=== PATIENT | male | born 1960 | race Caucasian/White ===

== ENCOUNTER 2016-07-14 14:43 | Inpatient (IN) | payer OTHER ==
[~2016-07-14] VITALS: Ht 175.3 cm; Wt 78.4 kg
[2016-07-14 17:10] VITALS: BP 166/96; PULSE 56; TEMP 36.6; O2SAT 95
--- NOTE | 2016-07-14 17:38 | History and Physical ---
History & Physical Date of Service Jul 14, 2016. History & Physical H & P Dictated #[id number] Family Contact is sister Pat [phone]
[2016-07-14 17:42] VITALS: BP 166/96; PULSE 56; TEMP 36.6; Ht 175.3 cm; Wt 78.4 kg
[2016-07-14] MEDS ORDERED: ACETAMINOPHEN 325 MG TAB PO PRN (17:45)
[2016-07-14] MEDS ORDERED: ONDANSETRON INJ 2 MG/ML 2 ML VIAL IV PRN (17:45)
[2016-07-14] MEDS ORDERED: ALBUTEROL 0.083% NEBU SOLN 3 ML VIAL INH PRN (17:45)
--- NOTE | 2016-07-14 17:52 | DIAGNOSTIC IMAGING REPORT ---
CHEST ONE VIEW PORTABLE CLINICAL HISTORY: pneumothorax COMPARISON STUDY: No previous studies for comparison. FINDINGS: The heart is normal in size. There is a right-sided pneumothorax with maximal pleural separation of 34 mm. There is no focal pulmonary consolidation.[ There is no significant pleural fluid. IMPRESSION: Moderate right-sided pneumothorax. Electronically signed by: Jarad Gómez M.D. 07/14/2016 5:50 PM Dictated Date/Time: 07/14/2016 5:48 PM
--- NOTE | 2016-07-14 18:10 | DIAGNOSTIC IMAGING REPORT ---
CT OF THE CHEST WITHOUT IV CONTRAST CLINICAL HISTORY: spontaneous pneumothorax COMPARISON STUDY: Chest x-ray dated 07/14/2016 CT DOSE: 410.55 mGy.cm TECHNIQUE: CT of the thorax was performed from the thoracic inlet to the lung bases. Images are reviewed in the axial, sagittal, and coronal planes. IV contrast was not administered for this examination. FINDINGS: Thyroid: Imaged portions of the thyroid gland are normal in appearance. Thoracic aorta: The thoracic aorta is normal in course and caliber, noting standard 3 vessel arch anatomy. Heart: The heart is normal in size and configuration, without pericardial effusion. Lungs and pleural spaces: There is a moderate right-sided pneumothorax with a pleural separation of 9 cm at the right lung base. There are dependent atelectatic changes. There is nodularity of the right middle lobe visceral surface. There are prominent apical blebs including a 29 mm right apical bleb. There is underlying emphysema. There are air bubbles present within the right chest wall. Mediastinum: There is no mediastinal lymphadenopathy. Gosia: There is no evidence of pathologic hilar adenopathy given the limitations of a noncontrast study Axilla: Clear. Upper abdomen: Partially visualized upper abdominal viscera is within normal limits. Skeletal structures: There is right-sided subcutaneous emphysema. IMPRESSION: 1. Moderate right-sided pneumothorax 2. Right-sided subcutaneous emphysema 3. Emphysema with biapical blebs 4. Dependent right lower lobe atelectasis 5. Nodular thickening of the visceral surface of the right middle lobe Electronically signed by: Jarad Gómez M.D. 07/14/2016 6:08 PM Dictated Date/Time: 07/14/2016 6:03 PM
[2016-07-14] MEDS ORDERED: PATIENT'S ALLERGY INFO NEEDS ENTERED SCH (18:30)
[2016-07-14] MEDS: MoRPHine SULFATE 2 MG/ML CARP IV PRN ×2 (19:18→23:26)
[2016-07-14] MEDS ORDERED: BUPR1SUB23 PO ×2 (19:21→19:40)
[2016-07-14 19:29] LABS: HEMATOCRIT 46.2 % (42-52); MEAN CELL VOLUME 92.6 fL (80-100); MEAN CORPUSCULAR HEMOGLOBIN 32.7 pg (25-34); MEAN CORPUSCULAR HGB CONC 35.3 g/dl (32-36); MEAN PLATELET VOLUME 10.1 fL (7.4-10.4); PLATELET COUNT 278 K/uL (130-400); RED BLOOD COUNT 4.99 M/uL (4.7-6.1); WHITE BLOOD COUNT 8.95 K/uL (4.8-10.8)
[2016-07-14 19:39] LABS: INR 1.1 (0.9-1.1); PARTIAL THROMBOPLASTIN RATIO 1.1; PROTHROMBIN TIME (PATIENT) 11.4 SECONDS (9.0-12.0)
[2016-07-14] MEDS ORDERED: AMOX500C3 PO (19:41)
[2016-07-14] MEDS ORDERED: AMLO-110 PO (19:43)
[2016-07-14] MEDS ORDERED: GABA-113 PO (19:43)
[2016-07-14] MEDS ORDERED: RANI150C4 PO (19:45)
[2016-07-14] MEDS ORDERED: ASPI81TA28 PO (19:46)
[2016-07-14 19:51] LABS: CREATININE 0.99 mg/dl (0.60-1.40)
[2016-07-14] MEDS ORDERED: ENOXAPARIN 40 MG/0.4 ML SYR SQ SCH (20:00)
[2016-07-14] MEDS ORDERED: ATV/2 PO (20:06)
[2016-07-14] MEDS ORDERED: PROP10TA7 PO (20:08)
[2016-07-14] MEDS ORDERED: ALPR0.25 PO (20:11)
[2016-07-14 20:36] VITALS: BP 137/87; PULSE 51; PULSE 65; O2SAT 95
[2016-07-14] MEDS: METOPROLOL SUCC 50MG EXT REL TAB PO SCH (20:42)
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
[2016-07-14 22:50] VITALS: BP 134/83; PULSE 60; TEMP 36.5; O2SAT 95
[2016-07-15] VITALS (9 sets, daily range): BP systolic 121–147; BP diastolic 73–87; PULSE 49–70; TEMP 36.6–36.9; O2SAT 91–94
[2016-07-15] MEDS: MoRPHine SULFATE 2 MG/ML CARP IV PRN ×5 (03:59→23:33)
[2016-07-15] MEDS ORDERED: CEFAZOLIN IV 2,000 MG/60 ML D5W IV SCH (06:00)
--- NOTE | 2016-07-15 07:19 | DIAGNOSTIC IMAGING REPORT ---
CHEST ONE VIEW PORTABLE CLINICAL HISTORY: pneumothorax dyspnea COMPARISON STUDY: 07/14/2016 FINDINGS: Right-sided pneumothorax is slightly diminished in volume. Pleural separation is diminished from 3.4 cm to 3.0 cm at the upper lung level. It is diminished from 5.2 to 4.2 cm in the right lung base region. Like atelectasis both lung bases. No evidence for cardiac enlargement. IMPRESSION: Right-sided pneumothorax slightly diminished in volume compared to the prior study. Electronically signed by: Brayan Saab M.D. 07/15/2016 7:17 AM Dictated Date/Time: 07/15/2016 7:15 AM
[2016-07-15] MEDS: OXYCODONE HCL IR 5 MG TAB (IMMEDIATE RELEASE) PO PRN ×2 (08:00→20:50)
[2016-07-15] MEDS: ASPIRIN 81 MG ECTAB PO SCH (08:01)
[2016-07-15] MEDS: METOPROLOL SUCC 50MG EXT REL TAB PO SCH ×2 (08:01→21:15)
[2016-07-15] MEDS: AMLODIPINE BESYLATE 5 MG TAB PO SCH (08:01)
--- NOTE | 2016-07-15 09:01 | SURGERY PROGRESS NOTE ---
DATE: 07/15/2016 DATE: 07/15/2016. Mr. Ngo was transferred to my service from [facility] yesterday evening. For specifics of his history and physical please see Suhail Nguyen's note. I had a long talk with Mr. Ngo this morning. He has apical blebs and has recurrent right spontaneous pneumothorax. I had a long discussion with him including using drawings to explain apical blebs. We are going to do a right thoracoscopic apical bleb resection this afternoon. I had a long talk about risks and benefits including bleeding, infection, blood clots, pneumonia, and especially air leaks. He understands. We are going to proceed later this afternoon and hopefully we will get him out of the hospital in the next 24-48 hours.
[2016-07-15] MEDS ORDERED: DEXAMETHASONE SOD INJ 4 MG/ML VIAL ONE (15:44)
[2016-07-15] MEDS ORDERED: LIDOCAINE HCL 2% 2 ML VIAL (20MG/ML) ONE (15:44)
[2016-07-15] MEDS ORDERED: PROPOFOL IV EMULSION 10 MG/ML 20 ML VIAL IV ONE (15:44)
[2016-07-15] MEDS ORDERED: NEOSTIGMINE METHYLSULFATE 1 MG/ML 10ML VIAL ONE (15:44)
[2016-07-15] MEDS ORDERED: FENTANYL CITRATE INJ 50 MCG/1 ML 2 ML VIAL ONE ×2 (15:44→16:19)
[2016-07-15] MEDS ORDERED: ROCURONIUM BROMIDE 10 MG/ML 5 ML VIAL ONE (15:44)
[2016-07-15] MEDS ORDERED: PHENYLEPHRINE 100MCG/ML 5ML SYR ONE (15:44)
[2016-07-15] MEDS ORDERED: ONDANSETRON INJ 2 MG/ML 2 ML VIAL ONE (15:44)
[2016-07-15] MEDS ORDERED: GLYCOPYRROLATE INJ 0.2 MG/ML VIAL ONE (15:44)
[2016-07-15] MEDS ORDERED: MIDAZOLAM HCL 1 MG/ML 2ML VIAL ONE (15:44)
[2016-07-15] MEDS ORDERED: SODIUM CHLORIDE 0.9% PF 50 ML VIAL ONE (15:50)
[2016-07-15] MEDS ORDERED: BUPIVACAINE LIPOSOME 1/3% 266 MG/20 ML VIAL INFIL ONE (15:50)
[2016-07-15] MEDS ORDERED: ATROPINE SULFATE 0.1 MG/ML 5ML SYR IV PRN (16:45)
[2016-07-15] MEDS ORDERED: HYDROmorphone INJ 0.5 MG/0.5 ML SYR IV PRN (16:45)
[2016-07-15] MEDS ORDERED: LABETALOL HCL IV 5 MG/ML 20ML IV PRN (16:45)
[2016-07-15] MEDS ORDERED: ONDANSETRON INJ 2 MG/ML 2 ML VIAL IV PRN ×2 (16:45→17:00)
[2016-07-15] MEDS ORDERED: KETOROLAC TROMETHAMINE 30 MG/ML VIAL IV. PRN (16:45)
[2016-07-15] MEDS ORDERED: HYDROmorphone INJ 1 MG/ML SYR ONE (17:14)
[2016-07-15] MEDS ORDERED: KETOROLAC TROMETHAMINE 30 MG/ML VIAL ONE (17:14)
[2016-07-15] MEDS: KETOROLAC TROMETHAMINE 15 MG/ML VIAL IV. SCH (18:00)
--- NOTE | 2016-07-15 18:07 | DIAGNOSTIC IMAGING REPORT ---
SINGLE VIEW CHEST CLINICAL HISTORY: Postoperative examination. FINDINGS: An AP, portable, upright chest radiograph is compared to study performed earlier the same day 07/15/2016 and correlated with chest CT dated 07/15/2015. The examination is degraded by portable technique and patient rotation. A right-sided chest tube has been placed. The tip terminates at the right apex. There is a small residual right apical pneumothorax, with approximately 2.5 cm right apical pleural separation. This has significantly decreased in size from the preoperative examination. The trachea is midline. The heart is top normal for projection. The pulmonary vascular is noncongested. Emphysema and chronic interstitial thickening are similar to previous. A trace right pleural effusion is suspected and there is bibasilar atelectasis. The bony thorax is grossly intact. Subcutaneous gas is noted along the right chest wall. IMPRESSION: 1. A right-sided chest tube has been placed. There is a small residual right apical pneumothorax. This has significantly decreased in size from the preoperative examination. 2. Emphysema. 3. Bibasilar atelectasis and trace right pleural effusion. Electronically signed by: Willie Terry M.D. 07/15/2016 6:05 PM Dictated Date/Time: 07/15/2016 6:02 PM
[2016-07-15] MEDS: D5W AND 1/2NSS 1,000 ML IV SCH (18:21)
[2016-07-15] MEDS: ACETAMINOPHEN IV 1,000 MG in EMPTY BAG 0 ML IV SCH (19:12)
--- NOTE | 2016-07-15 19:15 | OPERATIVE REPORT ---
DATE OF OPERATION: 07/15/2016 PREOPERATIVE DIAGNOSES: 1. Recurrent spontaneous right pneumothorax. 2. Bilateral apical bullae. POSTOPERATIVE DIAGNOSES: Same. PROCEDURE: Right thoracoscopy with apical bleb resection. SURGEON: Yoni Haywood MD HYDRAULIC LIFT DRIVER: DINA Stevens ANESTHESIA: General anesthesia endotracheal intubation with double lumen tube. SPECIFICS OF PROCEDURE: Very nice 55-year-old male who suffers spontaneous pneumothorax, had a chest tube inserted and when the leak stopped it was removed. He went home, only to come back within several days to [facility] with a recurrent pneumothorax. As he was stable, a call was made and I transferred him to my service last night. He did indeed have bilateral atypical bullae. I had a long talk with him this morning and we elected to proceed with an apical bleb resection. On the afternoon of 07/15/2016, patient underwent an uncomplicated apical bleb resection. We used two 12 mm ports and a 5 mm port. He tolerated it quite well. We also did an Exparel block. Blood loss was negligible and he had no air leak at the conclusion of the case. DESCRIPTION OF PROCEDURE: The patient was brought to the operating room and laid in the supine position. General anesthesia induced and endotracheal intubation was performed with a double lumen tube. No Banks and no a-line were used. The patient was turned to left lateral decubitus position, his right chest was prepped and draped in usual sterile fashion. After appropriate timeout had been called. A 5 mm port was made posteriorly and CO2 was insufflated. I then put a 5 mm scope, and it could be seen that the only adhesions noted were at the apex. I then placed a 12 mm port just anterior to the 2 interspaces below the tip of the scapula and another 12 mL port more medial just lateral to the mediastinum. These were done under thoracoscopic guidance. A 5 mm grasper was then placed through the posterior port, and a 10 mm 30-degree scope was placed in the middle port. I then used an electrocautery through the medial port and divided these adhesions. The bullae were localized to the apex. Endo-MEDHAT stapler was placed in the anterior thoracoscopy port while the posterior 5 [address] port held in place. We then stapled across these quite nicely. About 266 mg of Exparel mixed with 60 mL of normal saline. This was then injected from the 2nd to the 11th rib under thoracoscopic guidance for intercostal block. The patient was then placed in Trendelenburg and about a liter of warm saline were placed and then the lung was inflated. We saw no leak whatsoever. Chest tube was placed in the anterior thoracoscopy port. This 24 mm chest tube was held in place with heavy silk suture. Lung was then inflated and we checked for leak and there was no air leak. A 0 Polysorb was used to close the muscle layers and the 2 larger ports, and 4-0 Monocryl was used in a running subcuticular fashion to approximate the wound edges, this was done in a subcuticular fashion. Heavy silk was used to suture the chest tube in place. He tolerated it well and was extubated in the room. I attest to the content of the Intraoperative Record and any orders documented therein. Any exceptions are noted below. CARLA
[2016-07-15] MEDS: CEFAZOLIN IV 2,000 MG in DEXTROSE 5% 50ML 100 ML IV SCH (20:51)
--- NOTE | 2016-07-15 20:54 | Anesthesiology Progress Note ---
Anesthesia Post Op Note Date & Time Jul 15, 2016 at 20:54 Vital Signs Vital Signs Past 12 Hours Date Time Temp Pulse Resp B/P Pulse Ox O2 Delivery O2 Flow Rate FiO2 07/15/16 20:29 36.7 60 17 123/73 93 Nasal Cannula 2.5 07/15/16 19:24 36.6 55 18 125/76 92 Nasal Cannula 3.0 07/15/16 19:00 93 Nasal Cannula 3.0 07/15/16 18:38 93 Nasal Cannula 3.0 07/15/16 18:25 36.7 51 18 127/82 94 Nasal Cannula 2.0 07/15/16 18:00 36.7 49 18 121/78 92 Nasal Cannula 3.0 07/15/16 17:55 36.9 55 18 114/70 96 Nasal Cannula 3 07/15/16 17:40 55 20 119/74 95 Nasal Cannula 3 07/15/16 17:30 50 14 128/79 98 Nasal Cannula 3 07/15/16 17:20 52 16 132/80 98 Mask 10 07/15/16 17:10 51 16 136/80 98 Mask 10 07/15/16 17:02 36 55 16 137/84 98 Mask 10 Notes Mental Status: alert / awake / arousable, participated in evaluation Pt Amnestic to Procedure: Yes Nausea / Vomiting: adequately controlled Pain: adequately controlled Airway Patency, RR, SpO2: stable & adequate BP & HR: stable & adequate Hydration State: stable & adequate Anesthetic Complications: no major complications apparent
[2016-07-15] MEDS ORDERED: GABAPENTIN 100 MG CAP PO SCH (21:00)
[2016-07-15] MEDS: DOCUSATE SODIUM 100 MG CAP PO SCH (21:13)
[2016-07-15] MEDS: GABAPENTIN 300 MG CAP PO SCH (21:46)
[2016-07-15] MEDS: METOCLOPRAMIDE HCL INJ 5 MG/ML 2 ML VIAL IV. SCH (22:02)
[2016-07-16] VITALS (12 sets, daily range): BP systolic 106–145; BP diastolic 64–86; PULSE 52–66; TEMP 36.6–36.9; O2SAT 90–94
[2016-07-16] MEDS: KETOROLAC TROMETHAMINE 15 MG/ML VIAL IV. SCH ×3 (02:05→17:16)
[2016-07-16] MEDS: ACETAMINOPHEN IV 1,000 MG in EMPTY BAG 0 ML IV SCH ×2 (04:25→12:11)
[2016-07-16] MEDS: D5W AND 1/2NSS 1,000 ML IV SCH ×2 (04:25→13:37)
[2016-07-16] MEDS: CEFAZOLIN IV 2,000 MG in DEXTROSE 5% 50ML 100 ML IV SCH (05:29)
[2016-07-16] MEDS: METOCLOPRAMIDE HCL INJ 5 MG/ML 2 ML VIAL IV. SCH ×2 (05:29→13:38)
[2016-07-16] MEDS: OXYCODONE HCL IR 5 MG TAB (IMMEDIATE RELEASE) PO PRN ×3 (07:09→20:17)
[2016-07-16] MEDS: MoRPHine SULFATE 2 MG/ML CARP IV PRN ×4 (07:42→20:59)
[2016-07-16] MEDS: ASPIRIN 81 MG ECTAB PO SCH (08:54)
[2016-07-16] MEDS: DOCUSATE SODIUM 100 MG CAP PO SCH ×2 (08:54→21:03)
[2016-07-16] MEDS: METOPROLOL SUCC 50MG EXT REL TAB PO SCH ×2 (08:58→21:04)
[2016-07-16] MEDS: GABAPENTIN 300 MG CAP PO SCH ×3 (08:59→21:00)
[2016-07-16] MEDS: AMLODIPINE BESYLATE 5 MG TAB PO SCH (08:59)
[2016-07-16] MEDS: ENOXAPARIN 40 MG/0.4 ML SYR SQ SCH (09:02)
--- NOTE | 2016-07-16 10:58 | Anesthesiology Progress Note ---
Anesthesia Post Op Note Date & Time Jul 16, 2016 at 10:57 Vital Signs Pain Intensity: 8.0 Vital Signs Past 12 Hours Date Time Temp Pulse Resp B/P Pulse Ox O2 Delivery O2 Flow Rate FiO2 07/16/16 08:56 57 119/81 07/16/16 07:30 Room Air 07/16/16 07:05 36.7 57 18 123/80 90 Room Air 07/16/16 06:00 92 07/16/16 05:47 92 Room Air 07/16/16 05:07 36.6 61 18 111/69 91 Nasal Cannula 3.0 07/16/16 03:00 36.7 52 18 106/64 92 Nasal Cannula 3.0 07/16/16 01:42 36.6 55 18 114/73 93 Nasal Cannula 3.0 07/15/16 23:30 Nasal Cannula 3.0 07/15/16 22:58 36.9 56 16 122/73 93 Nasal Cannula 3.0 Notes Mental Status: alert / awake / arousable, participated in evaluation Pt Amnestic to Procedure: Yes Nausea / Vomiting: adequately controlled Pain: adequately controlled Airway Patency, RR, SpO2: stable & adequate BP & HR: stable & adequate Hydration State: stable & adequate Anesthetic Complications: no major complications apparent
[2016-07-16] MEDS ORDERED: ACETAMINOPHEN 325 MG TAB PO PRN (14:00)
--- NOTE | 2016-07-16 15:01 | SURGERY PROGRESS NOTE ---
DATE: 07/15/2016 Mr. Ngo was seen today 1 day status post thoracoscopic wedge resection of a right upper lobe bulla with spontaneous pneumothorax. His x-ray looked good yesterday postop. He has a small air leak which is intermittent. He drained very little from his chest tube. He is on room air. He is having issues with pain despite our Exparel block and narcotics as well as parenteral acetaminophen and Toradol. We are going to leave his chest tube in for at least 1 more day and hopefully his air leak will resolve by tomorrow. It is very small. He really did not have one postop. I reviewed all the connections and they appear to be intact.
[2016-07-17] VITALS (8 sets, daily range): BP systolic 127–161; BP diastolic 81–86; PULSE 52–68; TEMP 36.5–36.8; O2SAT 91–94
[2016-07-17] MEDS: MoRPHine SULFATE 2 MG/ML CARP IV PRN ×5 (00:06→23:27)
[2016-07-17] MEDS: KETOROLAC TROMETHAMINE 15 MG/ML VIAL IV. SCH ×2 (02:52→10:16)
[2016-07-17] MEDS: OXYCODONE HCL IR 5 MG TAB (IMMEDIATE RELEASE) PO PRN ×3 (08:03→20:08)
--- NOTE | 2016-07-17 08:09 | DIAGNOSTIC IMAGING REPORT ---
SINGLE VIEW CHEST CLINICAL HISTORY: Pneumothorax. Postoperative examination. FINDINGS: An AP, portable, upright chest radiograph is compared to studies dated 07/15/2016 and correlated with chest CT dated 07/15/2015. The examination is degraded by portable technique and patient rotation. A right-sided chest tube is unchanged in position. There is increasing right apical pneumothorax as compared to yesterday. There is approximately 4 cm of right apical pleural separation on today's examination. The trachea is midline. The heart is top normal for projection. The pulmonary vascular is noncongested. Emphysema and chronic interstitial thickening are similar to previous. Nodular scarring is noted the collapsed right apex. There is developing linear atelectasis in the left lower lung. A trace right pleural effusion is suspected. The bony thorax is grossly intact. Subcutaneous gas is noted along the right chest wall. IMPRESSION: 1. A right-sided chest tube is unchanged in position. There is an enlarging right apical pneumothorax as compared to yesterday. 2. Emphysema. 3. Increasing atelectasis and trace right pleural effusion. Electronically signed by: Willie Terry M.D. 07/17/2016 8:07 AM Dictated Date/Time: 07/17/2016 8:04 AM
--- NOTE | 2016-07-17 08:12 | SURGERY PROGRESS NOTE ---
DATE: 07/17/2016 DATE: 07/17/2016. Mr. Ngo was seen today on 07/17/2016. Mr. Ngo is having quite a bit of pain. He also has pain when the chest tube is on suction. He simply has a great deal of pain as a baseline with starting with his first chest tube which was a "horrible experience". Even though we have done an Exparel block he is still having a considerable amount of pain. Having said that, his oxygenation is fine. His vital signs are fine. In fact, his heart rate is in the 50s and 60s. He is moving his bowels and is ambulating. His air leak is very small and in fact I did not see one for a couple of minutes until he took a deep breath and coughed on suction. Having said back, he does have a 2.5 cm or so pneumothorax in the right apex. I often times see this after stapling off an apical bleb. My threshold for pulling his chest tube is going to be rather low and I may pull it out later today. These pneumothoraces resolve but they do not have a large active leak and it did not appear he had one at the time of surgery. At any rate I will check on him later on this afternoon. We are going to put him on waterseal alone.
[2016-07-17] MEDS: ASPIRIN 81 MG ECTAB PO SCH (08:57)
[2016-07-17] MEDS: GABAPENTIN 300 MG CAP PO SCH ×4 (08:57→20:08)
[2016-07-17] MEDS: AMLODIPINE BESYLATE 5 MG TAB PO SCH (08:57)
[2016-07-17] MEDS: DOCUSATE SODIUM 100 MG CAP PO SCH ×2 (08:57→20:08)
[2016-07-17] MEDS: ENOXAPARIN 40 MG/0.4 ML SYR SQ SCH (08:58)
[2016-07-17] MEDS: METOPROLOL SUCC 50MG EXT REL TAB PO SCH ×2 (09:00→20:09)
[2016-07-17] MEDS ORDERED: OXAZEPAM 15 MG CAP PO PRN (16:45)
[2016-07-18] MEDS: MoRPHine SULFATE 2 MG/ML CARP IV PRN ×2 (01:22→07:38)
--- NOTE | 2016-07-18 07:30 | DIAGNOSTIC IMAGING REPORT ---
CHEST ONE VIEW PORTABLE CLINICAL HISTORY: pneumothorax COMPARISON STUDY: 07/17/2016 FINDINGS: The cardiac and mediastinal contours remain stable. There is right-sided subcutaneous emphysema. The right-sided chest tube is unchanged in position. There is a persistent right-sided pneumothorax with a pleural separation of 38 mm. Linear opacities the left lung base are felt to be atelectatic.[ IMPRESSION: Persistent right apical pneumothorax with a pleural separation of 38 mm. Electronically signed by: Jarad Gómez M.D. 07/18/2016 7:27 AM Dictated Date/Time: 07/18/2016 7:26 AM
[2016-07-18 07:57] VITALS: BP 147/93; PULSE 59; TEMP 36.4; O2SAT 95
[2016-07-18] MEDS ORDERED: OXYC-57 PO (08:03)
[2016-07-18] MEDS ORDERED: CLC100 PO (08:03)
[2016-07-18] MEDS ORDERED: TPRSR50 PO (08:03)
--- NOTE | 2016-07-18 08:06 | Discharge Instructions ---
Discharge Instructions Date of Service Jul 18, 2016. Admission Reason for Admission: Rcr Spontanious Pneumothorax Discharge Discharge Diagnosis / Problem: Spontanious Pneumothorax Discharge Goals Goal(s): Improve function, Learn about illness Activity Recommendations Activity Limitations: as noted below Lifting Limitations: none . Instructions / Follow-Up Instructions / Follow-Up 1. Office appointment with Dr. Haywood in 1-2 week. Office will call with date and time of appointment. You will need a Chest x-ray prior to appointment. 2. Keep dressing s on x 3 days, then you may remove them and shower. No tub baths. 3. Do not fly or SCUBA dive until cleared to do so by Dr. Haywood. 4. Do not drive, operate heavy machinery/equipment, or make important decisions while taking percocet. Current Hospital Diet Patient's current hospital diet: Regular Diet Discharge Diet Recommended Diet: Regular Diet Procedures Procedures Performed: Right Video Assisted Thoracoscopy, bleb stapling Pending Studies Studies pending at discharge: no Medical Emergencies . Who to Call and When: Medical Emergencies: If at any time you feel your situation is an emergency, please call 911 immediately. . Non-Emergent Contact Non-Emergency issues call your: Surgeon Call Non-Emergent contact if: you have a fever, your pain is not controlled, wound has increased drainage . "Provider Documentation" section prepared by Jeffry Nguyen. . VTE Core Measure Inpt VTE Proph given/why not?: Enoxaparin (Lovenox)SQ
--- NOTE | 2016-07-18 08:19 | DIAGNOSTIC IMAGING REPORT ---
SINGLE VIEW CHEST CLINICAL HISTORY: Pneumothorax. Chest tube removal. FINDINGS: An AP, portable, upright chest radiograph is compared to study performed earlier the same day 07/18/2016 and correlated with chest CT dated 07/15/2015. The examination is degraded by portable technique and patient rotation. A right-sided chest tube has been removed. A small right apical pneumothorax is unchanged, from earlier today and there is approximately 3.5 cm apical pleural separation. The trachea is midline. The heart is top normal for projection. The pulmonary vascular is noncongested. Emphysema and chronic interstitial thickening are similar to previous. Nodular scarring is noted at the collapsed right apex. A trace right pleural effusion is suspected. The bony thorax is grossly intact. Subcutaneous gas is noted along the right chest wall. IMPRESSION: 1. A right-sided chest tube has been removed. The right apical pneumothorax is unchanged in size from earlier today. 2. Emphysema. 3. A trace right pleural effusion is suspected. Electronically signed by: Willie Terry M.D. 07/18/2016 8:16 AM Dictated Date/Time: 07/18/2016 8:14 AM
--- NOTE | 2016-07-18 08:27 | Discharge Summary ---
Discharge Summary Date of Service Jul 18, 2016. Discharge Summary Admission Date: Jul 14, 2016 at 17:03 Discharge Date: Jul 18, 2016 Discharge Disposition: Home Principal Diagnosis: Rigt Spontaneous pneumothorax Problems/Secondary Diagnoses: 1. PAF 2. HTN Procedures: 1. Right VATS with bleb stapling Medication Reconciliation New Medications: Oxycodone/Acetaminophen 5MG/325MG (Percocet 5MG/325MG) Tab 1-2 TABLETS PO Q4H PRN for Pain, #25 TAB Docusate Sodium (Docusate Sodium) 100 Mg Cap 100 MG PO BID for 30 Days, #60 CAP 0 Refills Metoprolol Succinate (Metoprolol Succinate ER) 50 Mg Tabcr 100 MG PO BID for 30 Days, 0 Refills Continued Medications: Amlodipine (Norvasc) 5 Mg Tab 5 MG PO DAILY, TAB Aspirin (Aspirin Ec) 81 Mg Tab 81 MG PO DAILY Gabapentin (Neurontin) 300 Mg Cap 300 MG PO TID, CAP Ranitidine Hcl (Ranitidine Hcl) 150 Mg Cap 1 CAP PO DAILY for 30 Days, #30 CAP 5 Refills Discontinued Medications: Alprazolam (Xanax) 0.25 Mg Tab 1 TAB PO BID for 30 Days, #60 TAB Amoxicillin (Amoxil) 500 Mg Cap 1 CAP PO TID for 10 Days, #30 CAP Buprenorphine Hcl-Naloxone Hcl (Suboxone 8-2 Mg) 1 Sub Sub 1 PO BID Lorazepam (Ativan) 2 Mg Tab 1 TAB PO DAILY Propranolol (Inderal) 10 Mg Tab 1 MG PO DAILY, TAB Discharge Exam Review of Systems: Constitutional: No chills, No fever Respiratory: No cough, No shortness of breath Cardiovascular: No chest pain Abdomen: No nausea, No vomiting Physical Exam: General Appearance: WD/WN, no apparent distress Respiratory/Chest: lungs clear, normal breath sounds, no respiratory distress, no accessory muscle use Cardiovascular: regular rate, rhythm Abdomen / GI: non tender, soft Extremities: no calf tenderness 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 taken to OR on 07/15/16 and right VATS with bleb stapling performed -chest tube manage in appropriate fashion post op and removed on 07/18/16 -pt. had right apical pneumothorax post-op that remained stable on water seal -pneumothorax decreased in size on post-pull CXR OTHER -lovenox used for DVT prevention Total Time Spent: Greater than 30 minutes This includes examination of the patient, discharge planning, medication reconciliation, and communication with other providers. Discharge Instructions Please refer to the electronic Patient Visit Report (Discharge Instructions) for additional information. Follow-Up 1. Dr. Haywood in 1-2 week with repeat CXR Additional Copies To Yoni Haywood MD
[2016-07-18] MEDS: ASPIRIN 81 MG ECTAB PO SCH (09:21)
[2016-07-18] MEDS: METOPROLOL SUCC 50MG EXT REL TAB PO SCH (09:21)
[2016-07-18] MEDS: GABAPENTIN 300 MG CAP PO SCH (09:21)
[2016-07-18] MEDS: AMLODIPINE BESYLATE 5 MG TAB PO SCH (09:21)
[2016-07-18] MEDS: DOCUSATE SODIUM 100 MG CAP PO SCH (09:21)
[2016-07-18] MEDS: ENOXAPARIN 40 MG/0.4 ML SYR SQ SCH (09:22)
[2016-07-18 10:26] VITALS: BP 147/93; PULSE 59; TEMP 36.4; O2SAT 95
== END 2016-07-18 13:02 | disposition home or self-care (01) | DRG 168 ==
LOC: C.MSN 17:03
PROVIDERS: ADMIT Surgery; ATTEND Surgery
PROC: 0B9 Respiratory System, Drainage (ICD-10-PCS; principal; 2016-07-15 10:00)
PROC: 0BBC4ZX Excision of Right Upper Lung Lobe, Percutaneous Endoscopic Approach, Diagnostic (ICD-10-PCS; principal; 2016-07-15 10:00)
DX: J93.11 Primary spontaneous pneumothorax (principal); J43.9 Emphysema, unspecified; I10 Essential (primary) hypertension; I48.0 Paroxysmal atrial fibrillation; F17.210 Nicotine dependence, cigarettes, uncomplicated; Z87.09 Personal history of other diseases of the respiratory system; Z79.82 Long term (current) use of aspirin; Z79.899 Other long term (current) drug therapy

== ENCOUNTER → 2016-08-04 | Outpatient (CLI) | payer OTHER ==
[~2016-08-04] MED LIST: AMLO-110 PO; ASPI81TA28 PO; CLC100 PO; GABA-113 PO; OXYC-57 PO; RANI150C4 PO; TPRSR50 PO
--- NOTE | 2016-08-04 10:58 | DIAGNOSTIC IMAGING REPORT ---
CHEST 2 VIEWS ROUTINE CLINICAL HISTORY: J93.9 [id number] COMPARISON STUDY: 07/18/2016 FINDINGS: The cardiac and mediastinal contours remain stable. There is no current evidence of pneumothorax. There is no lobar consolidation. Increased markings the left lung base, are likely atelectatic.[ There is no failure. No pleural effusions are visualized. IMPRESSION: 1. No evidence of pneumothorax 2. Linear density at the left lung base, likely atelectatic Electronically signed by: Jarad Gómez M.D. 08/04/2016 10:57 AM Dictated Date/Time: 08/04/2016 10:56 AM
== END | disposition home or self-care (01) ==
LOC: C.RAD 10:19
PROVIDERS: ATTEND Surgery
DX: J93.9 Pneumothorax, unspecified (principal); R91.8 Other nonspecific abnormal finding of lung field